=== PATIENT | female | born 1965 | race African-American/Black ===

== ENCOUNTER 2020-03-16 07:45 | Day surgery (SDC) | payer OTHER ==
[~2020-03-16] VITALS: Ht 167.6 cm; Wt 98.0 kg
[2020-03-16] VITALS (10 sets, daily range): BP systolic 106–122; BP diastolic 75–93; PULSE 76–88; TEMP 98.3
[2020-03-16] MEDS ORDERED: MAXALT10 MG PO (08:35)
[2020-03-16] MEDS ORDERED: PERCOCET 325 MG1 TA2 PO (08:35)
[2020-03-16] MEDS ORDERED: PROAIR HFA0.09 MG/AC IH (08:36)
[2020-03-16] MEDS ORDERED: TOPAMAX 25MG25 M1 PO (08:38)
[2020-03-16] MEDS ORDERED: PREDNISONE20 MG PO (08:38)
[2020-03-16] MEDS ORDERED: TOPAMAX 100MG100 M1 PO (08:39)
[2020-03-16] MEDS ORDERED: VITAMIN D250 MCG PO (08:40)
[2020-03-16] MEDS ORDERED: LIDODERM 5% PATC1 EA TP (08:40)
[2020-03-16] MEDS ORDERED: ATIVAN 1MG T1 MG/TAB PO (08:41)
[2020-03-16] MEDS ORDERED: PLENDIL10 MG PO (08:41)
[2020-03-16] MEDS ORDERED: PROTONIX 40MG T40 MG PO (08:43)
[2020-03-16] MEDS ORDERED: PLAQUENIL 200M200 MG PO (08:43)
[2020-03-16] MEDS ORDERED: WELLBUTRIN SR150 M1 PO (08:44)
[2020-03-16] MEDS ORDERED: SAPHRIS10 MG SL (08:44)
[2020-03-16] MEDS ORDERED: DESYREL DIVIDO150 M1 PO (08:45)
[2020-03-16] MEDS ORDERED: MASON NATURAL2000 IU PO (08:45)
[2020-03-16] MEDS ORDERED: ALLEGRA 180MG180 MG PO (08:46)
[2020-03-16] MEDS ORDERED: VITAMIN B11000 MCG/M IM (08:47)
[2020-03-16] MEDS ORDERED: COLACE 100100 MG/CAP PO (08:47)
[2020-03-16 09:16] LABS: HEMATOCRIT 37.8 % (37.0-47.0); HEMOGLOBIN 11.7 g/dl (12.5-16.0); MEAN CELL VOLUME 83 fl (80.0-100.0); MEAN CORPUSCULAR HEMOGLOBIN 26 pg (27.0-31.0); MEAN CORPUSCULAR HGB CONC 31 g/dl (33.0-37.0); MEAN PLATELET VOLUME 12.2 fl (7.4-10.4); PLATELET COUNT 273 K/mm3 (130-400); RED BLOOD COUNT 4.54 M/mm3 (4.10-5.30); REDCELL DISTRIBUTION WIDTH-CV 15.8 % (11.5-14.5)
[2020-03-16 09:30] LABS: CALCIUM 9.4 mg/dL (8.4-10.2); CREATININE, serum 1.08 (0.52-1.25)
[2020-03-16 09:33] LABS: PROTHROMBIN TIME 11.4 SECONDS (9.7-12.8)
--- NOTE | 2020-03-16 09:40 | NUR ---
SEE MERGE FOR ALL MEDICATION ADMINISTRATION TIMES, INTRA AND POST SEDATION ASSESSMENT
--- NOTE | 2020-03-16 11:00 | NUR ---
PT BACK FROM [facility], BS REPORT RECEIVED FROM DELBERT HALL. PT IS AWAKE AND ALERT, PWD, RESP UNLABORED. TR BAND TO RT WRIST, CMS INTACT DISTAL. GAUZE DRESSING TO RT SIDE OF NECK, NO SWELLING OR BLEEDING. NSR ON MONITOR, RATE 70'S, NS INFUSING AT 100 CC/HR. CALL LIGHT IN REACH, LUNCH ORDERED. TM
--- NOTE | 2020-03-16 12:00 | NUR ---
PT DOING WELL, UP TO BS COMMODE WITH NO PROBLEM, SITE LOOKS GOOD.
--- NOTE | 2020-03-16 14:30 | NUR ---
PT IS READY FOR DISCHARGE AT THIS TIME. TR BAND HAS BEEN DEFLATED WITH NO PROBLEM., SITE DRESSED WITH BANDAID, FOLDED 2X2 AND COBAN, CMS INTACT DISTAL. DRESSING CHANGED TO PUNCTURE SITE ON RT SIDE OF NECK, THIS SITE ALSO LOOKS GOOD WITH NO BLEEDING OR SWELLING. SITE IS TENDER. IV DC'D WTIH CATH INTACT, DRESSING APPLIED. I HAVE REVIEWED DC AND FU INSTRUCTIONS WITH PT WHO VERBALIZES UNDERSTANDING. SHE HAS BEEN AMBULATORY TO BATHROOM WITH NO PROBLEM AND IS WAITING FOR HER TO ARRIVE. SHE WILL BE TRANSPORTED TO EXIT VIA WHEELCHAIR WHEN HE ARRIVES.
== END 2020-03-16 19:03 | disposition home or self-care (01) ==
LOC: COL.CAR 07:45
PROVIDERS: Internal Medicine Cardiovascular Disease
DX: R06.09 Other forms of dyspnea (principal); I71.2 Thoracic aortic aneurysm, without rupture; I10 Essential (primary) hypertension; Z79.51 Long term (current) use of inhaled steroids
CPT/HCPCS: C1769; C1887; C1894; J1644; J2250; J3010; J7030; Q9967